=== PATIENT | female | born 1990 | race Caucasian/White ===

== ENCOUNTER 2018-09-06 14:22 | Emergency (ER) | payer BC ==
[~2018-09-06] VITALS: Ht 149.9 cm; Wt 81.6 kg
--- OUTSIDE RECORDS SUMMARY | 2018-09-06 14:24 | XMS REPORT | Clinical Summary ---
Author Author [facility] [employer] [facility] [employer] Address Unknown Phone Unavailable Care Team Providers Care Branch Logistics Supervisor Name Role Phone Asked, No Pcp PCP Unavailable Allergies Comments Active Allergy Reactions Severity Noted Date Ondansetron Hcl Swelling High 03/03/2018 Medications End Date Status Medication Sig Dispensed Refills Start Date Active Take 1 tablet 0 vit,[id number] 29 by mouth mg iron- 1 mg tablet per daily. tablet Active ferrous sulfate 325 (65 Take 325 mg 0 FE) MG tablet by mouth daily with breakfast. Active aspirin (ECOTRIN) 81 MG Take 81 mg by 0 enteric coated tablet mouth daily. Active cyclobenzaprine Take 10 mg by 0 (FLEXERIL) 10 mg tablet mouth 3 (three) times a day as needed for muscle spasms. 04/02/2018 HYDROcodone-acetaminophen Take 1 tablet 35 tablet 0 (NORCO) 7.5-325 mg per by mouth 8 tablet every 6 (six) hours as needed for moderate pain for up to 7 days. Max Daily Amount: 4 tablets 04/25/2018 ibuprofen (ADVIL,MOTRIN) Take 1 tablet 60 tablet 0 600 MG tablet (600 mg 8 total) by mouth every 6 (six) hours as needed (Cramping, Laceration or Incision Pain) for up to 30 days. Active Problems Problem Noted Date 03/23/2018 Encounters Care Team Description Date Type Specialty Alayna Barney MD 03/23/2018 Anesthesia Obstetrics and Gynecology Event Behzad Flores III, MD DELIVERY, -Repeat 03/23/2018 Surgery Obstetrics and Gynecology Behzad Flores III, MD care and examination (Primary Dx) 03/23/2018 Hospital Obstetrics and Gynecology - Encounter 03/26/2018 Behzad Flores III, MD 03/13/2018 Hospital Obstetrics and Gynecology - Encounter 03/14/2018 Behzad Flores III, MD 03/03/2018 Hospital Obstetrics and Gynecology Encounter after 09/05/2017 Immunizations Name Dates Previously Given Next Due Rho (D) Immune Globulin 03/24/2018, 01/19/2018 Tdap 03/25/2018 Family History Medical History Relation Name Comments Cancer Paternal Grandmother Relation Name Status Comments Father Alive Mother Alive Paternal Grandmother Sister Alive Social History Date Tobacco Use Types Packs/Day Years Used Quit: 08/03/2017 Former Smoker Cigarettes Smokeless Tobacco: Never Used Alcohol Use Drinks/Week oz/Week Comments No Sex Assigned at Date Recorded Not on file Industry Job Start Date Occupation Not on file Not on file Not on file Travel End Travel History Travel Start No recent travel history available. Last Filed Vital Signs Time Taken Vital Sign Reading 03/26/2018 7:25 AM CDT Blood Pressure 108/62 03/26/2018 7:25 AM CDT Pulse 84 03/26/2018 7:25 AM CDT Temperature 36.9 C (98.4 F) 03/26/2018 7:25 AM CDT Respiratory Rate 20 03/24/2018 10:02 AM CDT Oxygen Saturation 96% - Inhaled Oxygen - Concentration 03/23/2018 1:43 PM CDT Weight 83.5 kg (184 lb) 03/25/2018 8:04 PM CDT Height 149.9 cm (4' 11") 03/23/2018 1:43 PM CDT Body Mass Index 37.16 Plan of Treatment Health Maintenance Due Date Last Done Comments DIABETIC RETINAL EYE EXAM 1992 DIABETIC FOOT EXAM 2002 URINE MICROALBUMIN 2002 CERVICAL CANCER SCREENING 2013 INFLUENZA VACCINE 02/09/2018 Procedures Comments Procedure Name Priority Date/Time Associated Diagnosis RH IMM GLOBULIN Routine 03/24/2018 4:36 AM CDT HC COMPLETE BLD COUNT Routine 03/24/2018 W/AUTO DIFF 4:36 AM CDT SCREEN Routine 03/24/2018 4:36 AM CDT ANESTHESIA SPINAL BLOCK Routine 03/23/2018 6:24 PM CDT Procedure Note - Alayna Barney MD - 03/23/2018 6:24 PM CDT Spinal Block Performed by: ALAYNA BARNEY Authorized by: ALAYNA BARNEY Patient Location: OB Start Time: 03/23/2018 6:10 PM End Time: 03/23/2018 6:15 PM Reason for Block: primary anesthetic Staff: Gee wesley: ALAYNA BARNEY Performed by: Anesthesio maryjane patient identified , IV checked, site and side verified, risks and benefits discussed, procedure verified, surgical consent complete, patient position confirmed, monitors and equipment checked and pre-op evaluation complete Spinal Block: Patient Position: Sitting Prep: Betadine Monitoring : Blood pressure monitoring , continuous pulse oximetry and heart rate Approach: Midline Interspace : L4-5 Injection Technique: Single injection Needle: Needle Type: Pencil-tip Needle Gauge: 25 G Assessment : Coagulatio n status: Coagulatio n status verified Block assessment : No apparent complicati ons and patient tolerated procedure well Post procedure: Patient returned to supine position with left lateral displaceme nt and sterile dressing applied TYPE AND SCREEN, Routine 03/23/2018 OBSTETRICAL PATIENT 3:44 PM CDT SYPHILIS TREPONEMAL IGG Routine 03/23/2018 3:44 PM CDT HIV 1, 2 ANTIBODY Routine 03/23/2018 3:44 PM CDT HEPATITIS B SURFACE Routine 03/23/2018 ANTIGEN 3:44 PM CDT HC COMPLETE BLD COUNT Routine 03/23/2018 W/AUTO DIFF 3:44 PM CDT URINE DRUGS OF ABUSE Routine 03/23/2018 SCREEN 3:40 PM CDT URINALYSIS SCREEN AND Routine 03/23/2018 MICROSCOPY, WITH REFLEX 3:40 PM CDT TO CULTURE GRAM STAIN Routine 03/23/2018 3:40 PM CDT URINE CULTURE Routine 03/23/2018 3:40 PM CDT DELIVERY, 03/23/2018 Gestational diabetes 3:25 PM CDT mellitus in , diet controlled Case Notes Early labor at 37.2wks gestation; gdm, polyhydram nios; transverse presentati on Special Needs 34/1Due 04/11Repea t BETA STREP SCREEN CULTURE Routine 03/21/2018 WITH RIVERA BROTH URINALYSIS SCREEN AND STAT 03/13/2018 MICROSCOPY, WITH REFLEX 11:30 PM CDT TO CULTURE GRAM STAIN STAT 03/13/2018 11:30 PM CDT URINE CULTURE STAT 03/13/2018 11:30 PM CDT URINALYSIS SCREEN AND STAT 03/03/2018 MICROSCOPY, WITH REFLEX 2:30 PM CDT TO CULTURE FIBRONECTIN STAT 03/03/2018 2:30 PM CDT URINE CULTURE STAT 03/03/2018 2:30 PM CDT RH IMM GLOBULIN Routine 01/19/2018 3:23 PM CDT HIV 1, 2 ANTIBODY Routine 01/19/2018 RPR TITER WITH REFLEX TO Routine 01/19/2018 CONFIRMATION CBC WITH PLATELET AND Routine 12/23/2017 DIFFERENTIAL GESTATIONAL DIABETES Routine 12/23/2017 SCREEN CHLAMYDIA CULTURE Routine 12/14/2017 GONORRHOEAE CULTURE Routine 12/14/2017 RUBELLA AB IGG Routine 10/14/2017 HEPATITIS B SURFACE Routine 10/14/2017 ANTIGEN CBC WITH PLATELET AND Routine 10/14/2017 DIFFERENTIAL TYPE AND SCREEN, Routine 10/14/2017 OBSTETRICAL PATIENT RPR TITER WITH REFLEX TO Routine 10/14/2017 CONFIRMATION after 09/05/2017 Results * Rh imm globulin (03/24/2018 4:36 AM CDT) Only the most recent of 2 results within the time period is included. Rh Imm Globulin RHIG [id number] Issued [facility] DEPARTMENT OF PATHOLOGY AND GENOMIC MEDICINE Performing Organization Address City/State/Zipcode Phone Number [facility] [address] [place] [address] PATHOLOGY AND GENOMIC MEDICINE * screen (03/24/2018 4:36 AM CDT) screen NEG [facility] DEPARTMENT OF PATHOLOGY AND GENOMIC MEDICINE Specimen Blood Performing Organization Address City/[facility]/Zipcode Phone Number [facility] [address] [place] [address] PATHOLOGY AND GENOMIC MEDICINE * CBC with platelet and differential (03/24/2018 4:36 AM CDT) Only the most recent of 4 results within the time period is included. WBC 8.4 4.2 - 11.0 k/uL [facility] DEPARTMENT OF PATHOLOGY AND GENOMIC MEDICINE RBC 3.32 (L) 4.04 - 5.86 m/uL [facility] DEPARTMENT OF PATHOLOGY AND GENOMIC MEDICINE HGB 9.9 (L) 11.5 - 15.3 g/dL [facility] DEPARTMENT OF PATHOLOGY AND GENOMIC MEDICINE HCT 29.6 (L) 34.0 - 45.0 % [facility] DEPARTMENT OF PATHOLOGY AND GENOMIC MEDICINE MCV 89.2 80.0 - 98.0 fL [facility] DEPARTMENT OF PATHOLOGY AND GENOMIC MEDICINE MCH 29.8 27.0 - 34.0 pg [facility] DEPARTMENT OF PATHOLOGY AND GENOMIC MEDICINE MCHC 33.4 31.5 - 36.5 g/dL [facility] DEPARTMENT OF PATHOLOGY AND GENOMIC MEDICINE RDW - SD 41.3 37.0 - 51.0 fL [facility] DEPARTMENT OF PATHOLOGY AND GENOMIC MEDICINE MPV 10.0 7.4 - 10.4 fL [facility] DEPARTMENT OF PATHOLOGY AND GENOMIC MEDICINE Platelet count 175 150 - 400 k/uL [facility] DEPARTMENT OF PATHOLOGY AND GENOMIC MEDICINE Nucleated RBC 0.00 /100 WBC [facility] DEPARTMENT OF PATHOLOGY AND GENOMIC MEDICINE Neutrophils 77.1 (H) 36.0 - 66.0 % [facility] DEPARTMENT OF PATHOLOGY AND GENOMIC MEDICINE Lymphocytes 13.0 (L) 24.0 - 44.0 % [facility] DEPARTMENT OF PATHOLOGY AND GENOMIC MEDICINE Monocytes 8.1 (H) 0.0 - 6.0 % [facility] DEPARTMENT OF PATHOLOGY AND GENOMIC MEDICINE Eosinophils 1.3 0.0 - 6.0 % [facility] DEPARTMENT OF PATHOLOGY AND GENOMIC MEDICINE Basophils 0.1 0.0 - 1.2 % [facility] DEPARTMENT OF PATHOLOGY AND GENOMIC MEDICINE Immature granulocytes 0.4 0.0 - 1.0 % [facility] DEPARTMENT OF PATHOLOGY AND GENOMIC MEDICINE Specimen Blood Performing Organization Address City/State/Zipcode Phone Number [facility] DEPARTMENT OF [address] [place] [address] PATHOLOGY AND [facility] MEDICINE * Syphilis treponemal IgG (03/23/2018 3:44 PM CDT) Syphilis treponemal IgG Non-reactiveComment: Non-reactive [facility] DEPARTMENT OF Non-reactive: No serological PATHOLOGY AND evidence of Syphilis infection GENOMIC MEDICINE Specimen Serum Performing Organization Address City/State/Zipcode Phone Number [facility] DEPARTMENT OF [address] [place] [phone] PATHOLOGY AND GENOMIC MEDICINE * Type and screen, obstetrical patient (03/23/2018 3:44 PM CDT) Only the most recent of 2 results within the time period is included. ABO grouping B [facility] DEPARTMENT OF PATHOLOGY AND GENOMIC MEDICINE Rh type NEG [facility] DEPARTMENT OF PATHOLOGY AND GENOMIC MEDICINE Antibody screen (gel) NEG [facility] DEPARTMENT PATHOLOGY AND [employer] MEDICINE Specimen Blood Performing Organization Address [facility] Phone Number [facility] DEPARTMENT OF [address] [place] [phone] PATHOLOGY AND [facility] * HIV 1, 2 antibody (03/23/2018 3:44 PM CDT) Only the most recent of 2 results within the time period is included. HIV 1, 2 antibody Non-Reactive Non-reactive [facility] DEPARTMENT OF Comment: PATHOLOGY AND Starting from October 08 2015, GENOMIC MEDICINE 4th generation HIV screening and confirmation assays are in use at [facility], consistent with the CDC-recommended algorithm. The screening test detects antibodies to HIV-1, HIV-2 and the p24 antigen. Positive screening results will be automatically reflexed to a HIV-1/HIV-2 differentiation assay. Indeterminant HIV-1 results will be further automatically reflexed to a nucleic acid test for detection of acute infection. Western blot will no longer be performed as a confirmation test. For a quick reference guide on the testing algorithm, please refer to: http://stacks.cdc.gov/view/cdc /13375. Specimen Blood Performing Organization Address City/State/Zipcode Phone Number [facility] DEPARTMENT OF [address] [place] [address] PATHOLOGY AND [employer] MEDICINE * Hepatitis B surface antigen (03/23/2018 3:44 PM CDT) Only the most recent of 2 results within the time period is included. Hepatitis B surface Ag Non-reactive Non-reactive [facility] DEPARTMENT OF PATHOLOGY AND GENOMIC MEDICINE Specimen Blood Performing Organization Address City/[facility]/Zipcode Phone Number [place] [address] [place] [address] PATHOLOGY AND GENOMIC MEDICINE * Urinalysis screen and microscopy, with reflex to culture (03/23/2018 3:40 PM CDT) Only the most recent of 3 results within the time period is included. Specimen site Clean catch [facility] DEPARTMENT OF PATHOLOGY AND GENOMIC MEDICINE Color, UA Yellow [facility] DEPARTMENT OF PATHOLOGY AND GENOMIC MEDICINE Appearance, UA Slightly-Cloudy [facility] DEPARTMENT OF PATHOLOGY AND GENOMIC MEDICINE Specific gravity, UA 1.020 1.001 - 1.035 [facility] DEPARTMENT OF PATHOLOGY AND GENOMIC MEDICINE pH, UA 6.0 5.0 - 8.5 [facility] DEPARTMENT OF PATHOLOGY AND GENOMIC MEDICINE Protein, UA 1+ (A) Negative [facility] DEPARTMENT OF PATHOLOGY AND GENOMIC MEDICINE Glucose, UA Negative Negative [facility] DEPARTMENT OF PATHOLOGY AND GENOMIC MEDICINE Ketones, UA Trace (A) Negative [facility] DEPARTMENT OF PATHOLOGY AND GENOMIC MEDICINE Bilirubin, UA Negative Negative [facility] DEPARTMENT OF PATHOLOGY AND GENOMIC MEDICINE Blood, UA Moderate (A) Negative [facility] DEPARTMENT OF PATHOLOGY AND GENOMIC MEDICINE Nitrite, UA Negative Negative [facility] DEPARTMENT OF PATHOLOGY AND GENOMIC MEDICINE Urobilinogen, UA Negative <2.0 [facility] DEPARTMENT OF PATHOLOGY AND GENOMIC MEDICINE Leukocyte esterase, UA Large (A) Negative [facility] DEPARTMENT OF PATHOLOGY AND GENOMIC MEDICINE Epithelial cells, UA Many /HPF [facility] DEPARTMENT OF PATHOLOGY AND GENOMIC MEDICINE WBC, UA 44 (H) 0 - 5 /HPF [facility] DEPARTMENT OF PATHOLOGY AND GENOMIC MEDICINE RBC, UA 103 (H) 0 - 5 /HPF [facility] DEPARTMENT OF PATHOLOGY AND GENOMIC MEDICINE Bacteria, UA Trace None seen [facility] DEPARTMENT OF PATHOLOGY AND GENOMIC MEDICINE Yeast, UA None seen [facility] DEPARTMENT OF PATHOLOGY AND GENOMIC MEDICINE Yeast with pseudohyphae, None seen [facility] DEPARTMENT [facility] PATHOLOGY AND GENOMIC MEDICINE Specimen Urine Performing Organization Address City/[facility]/Zipcode Phone Number [facility] [place] [address] PATHOLOGY AND GENOMIC MEDICINE * Urine drugs of abuse screen (03/23/2018 3:40 PM CDT) Amphetamine screen, urine Negative [facility] DEPARTMENT OF PATHOLOGY AND GENOMIC MEDICINE Barbiturate screen, urine Negative [facility] DEPARTMENT OF PATHOLOGY AND GENOMIC MEDICINE Benzodiazepine screen, Negative [facility] DEPARTMENT OF urine PATHOLOGY AND GENOMIC MEDICINE Cannabinoid screen, urine Negative [facility] DEPARTMENT OF PATHOLOGY AND GENOMIC MEDICINE Cocaine screen, urine Negative [facility] DEPARTMENT OF PATHOLOGY AND GENOMIC MEDICINE Methadone metabolite Negative [facility] DEPARTMENT OF (EDDP), urine PATHOLOGY AND GENOMIC MEDICINE Opiates screen, urine Negative [facility] DEPARTMENT OF PATHOLOGY AND GENOMIC MEDICINE Phencyclidine screen, Negative [facility] DEPARTMENT OF urine PATHOLOGY AND GENOMIC MEDICINE Specimen Urine Performing Organization Address City/[facility] Phone Number [facility] DEPARTMENT OF [address] [place] [address] PATHOLOGY AND GENOMIC MEDICINE * Gram stain (03/23/2018 3:40 PM CDT) Only the most recent of 2 results within the time period is included. Gram stain result No WBC's [facility] DEPARTMENT OF Many Gram positive rods PATHOLOGY AND Comment: GENOMIC MEDICINE Specimen Information Specimen Source: Urine Specimen Site: Clean catch Specimen Urine Performing Organization Address [facility] Phone Number [facility] DEPARTMENT OF [address] [place] [address] PATHOLOGY AND GENOMIC MEDICINE * Urine culture (03/23/2018 3:40 PM CDT) Only the most recent of 3 results within the time period is included. Urine culture isolate Mixed Gram positive ashley [facility] DEPARTMENT OF >10-5 cfu/ml PATHOLOGY AND (A) GENOMIC MEDICINE Comment: Specimen Information Specimen Source: Urine Specimen Site: Clean catch Specimen Urine Performing Organization Address [facility] Phone Number [facility] DEPARTMENT OF [address] [place] [address] PATHOLOGY AND GENOMIC MEDICINE * Beta strep screen culture with rivera broth (03/21/2018) Strep gp B culture neg EXTERNAL LAB NON-INTERFACED Specimen Vaginal Performing Organization Address [facility] Phone Number EXTERNAL LAB NON-INTERFACED * fibronectin (03/03/2018 2:30 PM CDT) fibronectin Negative [facility] DEPARTMENT OF PATHOLOGY AND GENOMIC MEDICINE Specimen Fluid Performing Organization Address [facility] Phone Number [facility] DEPARTMENT OF [address] [place] [address] PATHOLOGY AND GENOMIC MEDICINE * RPR titer with reflex to confirmation (01/19/2018) Only the most recent of 2 results within the time period is included. RPR (dx) w/refl titer and Negative EXTERNAL LAB confirmatory testing NON-INTERFACED Specimen Blood Performing Organization Address [facility] Phone Number EXTERNAL LAB NON-INTERFACED * Gestational Diabetes Screen (12/23/2017) Gestational diabetes 173 EXTERNAL LAB screen NON-INTERFACED Specimen Blood Performing Organization Address [facility] Phone Number EXTERNAL LAB NON-INTERFACED * Chlamydia culture (12/14/2017) Chlamydia culture isolate Negative EXTERNAL LAB NON-INTERFACED Specimen Swab Performing Organization Address [facility] Phone Number EXTERNAL LAB NON-INTERFACED * Gonorrhoeae culture (12/14/2017) Gonorrhoeae culture Negative EXTERNAL LAB isolate NON-INTERFACED Performing Organization Address [facility] Phone Number EXTERNAL LAB NON-INTERFACED * Rubella Ab IgG (10/14/2017) Rubella IgG antibody Immune EXTERNAL LAB NON-INTERFACED Specimen Blood Performing Organization Address [facility] Phone Number EXTERNAL LAB NON-INTERFACED after 09/05/2017 Insurance Payer Benefit Subscriber ID Type Phone Address Plan / Group [employer] [facility] xxxxxxxxx HMO [employer] BCBS BCBS xxxxxxxxxxxx PPO CHOICE PPO/[employer] EMPL PPO [id number] [facility] (Home) [place] [address] Advance Directives Patient has advance care planning documents, and code status on file. For more i nformation, please contact: Ras Carrion [address] [place] [address] Date Inactivated Comments Code Status Date Activated 03/26/2018 4:06 PM Full Code 03/23/2018 2:12 PM Code Status decision reached by: Patient 03/14/2018 4:48 AM Full Code 03/13/2018 11:27 PM Code Status decision reached by: Patient 03/03/2018 10:28 PM Full Code 03/03/2018 2:29 PM Code Status decision reached by: Patient
[2018-09-06] MEDS ORDERED: TRAMADOL HCL 50 MG TAB PO NR (14:45)
[2018-09-06] MEDS ORDERED: CYCLOBENZAPRINE HCL 10 MG TAB PO NR (15:00)
[2018-09-06 15:46] LABS: BILIRUBIN,URINE NEGATIVE (NEGATIVE); CLARITY,URINE SL CLOUDY (CLEAR); COLOR,URINE YELLOW (YELLOW); KETONES,URINE NEGATIVE (NEGATIVE); LEUKOCYTE ESTERASE ,URINE NEGATIVE (NEGATIVE); NITRITE,URINE NEGATIVE (NEGATIVE); PREGNANCY TEST, URINE NEGATIVE (NEGATIVE); PROTEIN,URINE DIPSTICK NEGATIVE (NEGATIVE); URINE UROBILINOGEN 0.2 mg/dL (0.2 - 1)
[2018-09-06 15:57] LABS: BACTERIA,URINE FEW /HPF; EPITHELIAL CELLS,URINE MANY /LPF; RBC,URINE 0-5 /HPF (0-5)
--- NOTE | 2018-09-06 16:38 | Diagnostic Imaging Report ---
Exam: Right shoulder 2 views History: Pain Comparison: None. Findings: No fracture or malalignment. Joint spaces preserved. No abnormal soft tissue calcification or soft tissue defect. Impression: No acute osseous abnormality Signed by: Dr. Souleymane Sharma M.D. on 09/06/2018 4:35 PM
--- NOTE | 2018-09-06 16:40 | Diagnostic Imaging Report ---
Exam: RIBS 4 views History: Pain Comparison: None. Findings: No fracture or malalignment. No abnormal soft tissue calcification or soft tissue defect. Impression: No displaced rib fracture Signed by: Dr. Souleymane Sharma M.D. on 09/06/2018 4:36 PM
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
== END 2018-09-06 18:27 | disposition home or self-care (01) ==
LOC: ER 14:22
DX: S00.83XA Contusion of other part of head, initial encounter (principal); S16.1XXA Strain of muscle, fascia and tendon at neck level, initial encounter; S20.211A Contusion of right front wall of thorax, initial encounter; S40.011A Contusion of right shoulder, initial encounter; V43.62XA Car passenger injured in collision with other type car in traffic accident, initial encounter; Y92.488 Other paved roadways as the place of occurrence of the external cause
CPT/HCPCS: 70450; 71101; 72125; 81001; 81025; 99283